=== PATIENT | female | born 1955 | race Caucasian/White ===

== ENCOUNTER 2018-06-23 08:11 | Observation (INO) ==
[2018-06-23] MEDS ORDERED: 0.9 % Sodium Chloride 1,000 ML IVC ONE (08:15)
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
[2018-06-23 08:36] LABS: Basophils # 0.1 K/mcL (0.0-0.2); Eosinophils # 0.3 K/mcL (0.0-0.6); Eosinophils % 3.1 %; Hematocrit 45.2 % (35.3-44.9); Hemoglobin 15.8 g/dL (11.5-15.4); Immature Granulocytes % 0.2 % (0-4); Lymphocytes # 3.2 K/mcL (0.6-4.6); Lymphocytes % 31.5 %; Mean Corpuscular Hemoglobin 31.7 pg (28.0-33.3); Mean Corpuscular Volume 90.8 fL (83.0-100.0); Monocytes # 0.8 K/mcL (0.0-1.3); Monocytes % 7.9 %; Neutrophils # 5.8 K/mcL (1.6-8.9); Platelet Count 227 K/mcL (140-400); Red Blood Count 4.98 M/mcL (3.82-4.97); Red Cell Distribution Width 13.6 % (11.5-14.5); Segmented Neutrophils % 56.3 %
[2018-06-23 08:55] LABS: BUN/Creatinine Ratio 39 (6-26); Blood Urea Nitrogen 21 mg/dL (8-23); Calcium 9.7 mg/dL (8.6-10.3); Carbon Dioxide 19 mEq/L (23-29); Chloride 112 mEq/L (98-107); Ethanol < 10 mg/dL (Less than 10); Glucose 130 mg/dL (70-105); Osmolality,Calculated 295 (280-300); Potassium 3.9 mEq/L (3.5-5.1); Sodium 140 mEq/L (136-145); eGFR For Non-African Americans > 60 (> 60)
[2018-06-23 09:46] LABS: Bilirubin,Urine Negative (Negative); Blood,Urine Negative (Negative); Clarity,Urine Clear (Clear); Color,Urine Yellow (Yellow); Glucose,Urine (UA) Normal (Normal); Ketones,Urine Negative (Negative); Leukocyte Esterase,Urine Negative (Negative); Nitrite,Urine Negative (Negative); Protein,Urine Negative (Neg-Trace); Specific Gravity,Urine 1.008 (1.010-1.025); Urobilinogen,Urine Normal (Normal)
[2018-06-23 10:05] LABS: Amphetamine Screen,Urine Negative ng/mL (Cutoff=1000); Barbiturate Screen,Urine Negative ng/mL (Cutoff=200); Benzodiazepines Screen,Urine Negative ng/mL (Cutoff=200); Cannabinoid Screen,Urine Negative ng/mL (Cutoff = 50); Cocaine Screen,Urine Negative ng/mL (Cutoff= 300); Opiate Screen,Urine Negative ng/mL (Cutoff=300); Phencyclidine Screen,Urine Negative ng/mL (Cutoff=25)
[2018-06-23] MEDS ORDERED: Acetaminophen 325 MG TABLET PO ONE (10:39)
[2018-06-23] MEDS ORDERED: Naloxone 0.4 MG/ML INJ IVP PRN (10:54)
[2018-06-23] MEDS ORDERED: Acetaminophen 325 MG TABLET PO PRN (10:54)
--- NOTE | 2018-06-23 10:57 | Electrocardiograph Report ---
[facility] Test Date: 2018-06-23 Pat Name: Lily Morrell Department: [id number] Room: Gender: F Occupational Therapy Manager: : 1955 Requested By: Nelson Crowell Order Number: [id number] Reading MD: Wade Hutson Measurements Intervals [place] Rate: 79 P: 61 AR: 134 QRS: 9 QRSD: 108 T: 117 QT: 423 QTc: 485 Interpretive Statements Sinus rhythm Abnormal T, consider ischemia, lateral leads Electronically Signed On 06-23-2018 10:56:32 EST by Wade Hutson
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
[2018-06-23 11:15] LABS: INR 0.9; Prothrombin Time 10.5 Seconds (9.4-12.1)
[2018-06-23] MEDS: Nicotine 21 MG PATCH.TD24 TD SCH (11:42)
[2018-06-23] MEDS ORDERED: Ibuprofen 600 MG TABLET PO PRN ×2 (14:30→22:03)
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
[2018-06-24 06:34] LABS: BUN/Creatinine Ratio 32 (6-26); Blood Urea Nitrogen 14 mg/dL (8-23); Calcium 9.2 mg/dL (8.6-10.3); Carbon Dioxide 18 mEq/L (23-29); Chloride 113 mEq/L (98-107); Glucose 115 mg/dL (70-105); Osmolality,Calculated 291 (280-300); Potassium 3.9 mEq/L (3.5-5.1); Sodium 140 mEq/L (136-145); eGFR For Non-African Americans > 60 (> 60)
[2018-06-24 07:24] VITALS: BP 146/84
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
[2018-06-24] MEDS: Nicotine 21 MG PATCH.TD24 TD SCH (08:37)
[2018-06-24] MEDS ORDERED: amLODIPine 5 MG TABLET PO SCH (09:00)
== END 2018-06-24 08:52 | disposition home or self-care (01) ==
LOC: SUATTDRO → 2NNU 08:11 → EMEROOARM 08:11 → SUATTDRO 13:11 → 2NNU 13:47
PROVIDERS: ADMIT Internal Medicine; ATTEND Internal Medicine